=== PATIENT | female | born 1985 | race Caucasian/White ===

== ENCOUNTER → 2018-07-02 09:16 | Outpatient (CLI) | payer OTHER, MEDICAID, SELFPAY ==
--- NOTE | 2018-07-02 | DI.MRI.S_ITS ---
PROCEDURE: MR ANGIO HEAD WO CON INDICATIONS: PULSITILE TINNITUS TECHNIQUE: Noncontrast axial 3-D [id number] MR angiogram, with 3-dimensional maximum intensity projection (MIP) reformats of the internal carotid arteries and posterior circulation then performed. COMPARISON: None. FINDINGS: Image quality: Excellent. Anterior circulation: Intracranial internal carotid arteries demonstrate normal size and intraluminal flow signal. The flow within the paired anterior cerebral arteries is normal and symmetric. The flow within the middle cerebral arteries is normal and symmetric. The anterior communicating artery is seen. No stenoses, occlusions, or aneurysms. Posterior circulation: Left distal vertebral artery is dominant and patent. Right distal vertebral artery is small in caliber, but patent. The flow within the posterior cerebral arteries is normal and symmetric. No stenoses, occlusions, or aneurysms. IMPRESSION: Negative cerebral MR angiography. No explanation for tinnitus. Dictated by: Romina Bhakta M.D. on 07/02/2018 at 10:38 Approved by: Romina Bhakta M.D. on 07/02/2018 at 10:40
== END ==
PROVIDERS: Visit Provider Otolaryngology
DX: H93.A9 Pulsatile tinnitus, unspecified ear (principal)
CPT/HCPCS: 70544

== ENCOUNTER 2019-07-28 11:39 | Emergency (ER) | payer OTHER, MEDICAID, SELFPAY ==
[2019-07-28 11:53] VITALS: BP 157/77; PULSE 117; RESP 24; TEMP 36.7; O2SAT 99
--- NOTE | 2019-07-28 13:09 | DI.RAD.S_ITS ---
PROCEDURE: XR CHEST 2V INDICATIONS: abd pain worse w/ deep breath TECHNIQUE: 2 views of the chest were acquired. COMPARISON: None. FINDINGS: Surgical changes and devices: None. Lungs and pleura: Lungs are clear. No pleural effusions or pneumothorax. Mediastinum: Mediastinal contours are normal. Heart size is normal. Bones and chest wall: No suspicious bony abnormalities. Soft tissues appear unremarkable. IMPRESSION: No acute cardiopulmonary disease process. Dictated by: Vanessa Clark MD, PhD on 07/28/2019 at 13:45 Approved by: Vanessa Clark MD, PhD on 07/28/2019 at 13:45
--- NOTE | 2019-07-28 13:09 | DI.RAD.S_ITS ---
PROCEDURE: XR ABDOMEN 1V INDICATIONS: abd pain worse w/ deep breath TECHNIQUE: One view of the abdomen acquired. COMPARISON: None. FINDINGS: Surgical changes and devices: None. Bowel: Bowel gas pattern is normal. Soft tissues: No suspicious abdominal calcifications. Visualized solid organ contours appear normal in size. Bones: No suspicious bony lesions. IMPRESSION: Normal examination. Dictated by: Vanessa Clark MD, PhD on 07/28/2019 at 13:44 Approved by: Vanessa Clark MD, PhD on 07/28/2019 at 13:45
[2019-07-28 13:21] VITALS: PULSE 101; RESP 12; O2SAT 99
[2019-07-28 13:35] LABS: Add Manual Diff / Slide Review NO; Basophils Absolute Auto 100 /uL (0-100); Basophils Percent Auto 0.9 % (0-2); Eosinophils Absolute Auto 100 /uL (0-450); Eosinophils Percent Auto 0.9 % (2-4); Hematocrit 41.6 % (36-46); Hemoglobin 14.3 g/dL (12.0-16.0); Lymphocytes Absolute Auto 2800 /uL (1100-4500); Lymphocytes Percent Auto 32.4 % (25-40); Mean Corpuscular HGB Conc 34.3 % (30-36); Mean Corpuscular Volume 90.3 fL (80-100); Monocytes Absolute Auto 700 /uL (0-900); Monocytes Percent Auto 8.5 % (3-14); Neutrophils Absolute Auto 5000 /uL (1500-7000); Neutrophils Percent Auto 57.3 % (50-75); Platelet Count 315 X10^3/uL (150-400); Red Blood Cell Count 4.61 X10^6/uL (4.0-5.2); Red Cell Distribution Width 13.5 % (11.6-14.8); White Blood Cell Count 8.7 X10^3/uL (4.5-11.0)
[2019-07-28 13:51] LABS: Alanine Aminotransferase 23 IU/L (<35); Albumin 4.8 g/dL (3.5-5.0); Albumin Globulin Ratio 1.4 (1.0-2.8); Alkaline Phosphatase 69 U/L (38-126); Aspartate Aminotransferase 24 IU/L (14-36); BUN Creatinine Ratio 25.5 (6-22); Bilirubin Total 0.5 mg/dL (0.2-1.3); Blood Urea Nitrogen 14 mg/dL (7-17); Calcium 9.9 mg/dL (8.4-10.2); Carbon Dioxide 24 mmol/L (22-32); Chloride 103 mmol/L (98-107); Estimated Glomerular Filt Rate > 60.0 mL/min (>60); Globulin 3.4 g/dL (1.7-4.1); Glucose 100 mg/dL (70-100); HEMOLYSIS < 15 (0-50); Potassium 4.5 mmol/L (3.4-5.1); Sodium 136 mmol/L (137-145); Total Protein 8.2 g/dL (6.3-8.2)
[2019-07-28 15:09] VITALS: BP 129/84; PULSE 86; RESP 17; O2SAT 97
--- NOTE | 2019-07-28 15:09 | ED_ITS ---
HPI - Abdominal Pain <WILDA Rhoades - Last Filed: 07/28/19 19:10> General Chief Complaint: Abdominal Pain Stated Complaint: bilateral Kidney pain Time Seen by Provider: 07/28/19 14:35 Source: patient Mode of arrival: Ambulatory Limitations: no limitations History of Present Illness HPI narrative: 33yo female with a history of chronic low back pain, presents emergency department complaining of lower rib upper abdominal pain bilaterally for the past 3-4 days. She states this pain occurred when taking a deep breath or with certain movements. ?Patient states she has been tested for COVID-19 as well as tested for antibodies, without a positive result. Patient denies any trauma to the area history of renal calculi. Patient states ?I am worried about kidneys ?. Patient denies any abdominal pain, nausea, vomiting, chest pain, shortness of breath, dysuria, vaginal bleeding or discharge, or any other concerns. Related Data Home Medications Medication Instructions Recorded Confirmed diphenhydramine HCl [Benadryl 25 mg PO Q6HP PRN #0 02/20/16 07/07/19 Allergy] acetaminophen 500 mg tablet 500 mg PO QID PRN 05/01/19 07/07/19 tizanidine 2 mg tablet 2 mg PO Q6-8H PRN 05/01/19 07/07/19 lisinopril 10 mg tablet mg PO DAILY tab 07/07/19 07/07/19 Previous Rx's Medication Instructions Recorded methylprednisolone 4 mg tablets in See Rx Instructions PO PER PKG DIR 07/07/19 a dose pack #21 each oxaprozin 600 mg tablet 1,200 mg PO DAILY #60 tab 07/07/19 Allergies Allergy/AdvReac Type Severity Reaction Status Date / Time codeine [CODEINE] Allergy Unknown Verified 07/28/19 11:58 naproxen [NAPROXEN] Allergy Unknown Verified 07/28/19 11:58 pregabalin [From LYRICA] Allergy Unknown Verified 07/28/19 11:58 tramadol AdvReac Mild rigors Verified 07/28/19 11:58 Review of Systems <WILDA Rhoades - Last Filed: 07/28/19 19:10> Review of Systems Narrative: REVIEW OF SYSTEMS: GENERAL: Denies fever or chills. HENT: No head trauma. CARDIOVASCULAR: No chest pain or syncope. RESPIRATORY: No shortness of breath or cough. GASTROINTESTINAL: No nausea, vomiting, diarrhea, or constipation. GENITOURINARY: No flank pain or dysuria. MUSCULOSKELETAL: Complains of lower rib/upper abdominal pain bilaterally, see HPI. INTEGUMENTARY: No rash, lesions, or pruritus. NEURO: No numbness, tingling. Patient History <WILDA Rhoades - Last Filed: 07/28/19 19:10> Medical History Facet arthropathy, lumbar (Acute) Lumbosacral radiculopathy at L5 (Acute) Spondylolisthesis of lumbosacral region (Acute) Surgical History History of tonsillectomy (Acute) Family History Father Mesothelioma Mother Cancer Grandmother Cancer Grandfather Cancer Social History Smoking Status: Current every day smoker alcohol intake: never substance use type: does not use Smoking Status: Current every day smoker alcohol intake frequency: 0-2 drinks per day Substance Use Type: does not use Exam <WILDA Rhoades - Last Filed: 07/28/19 19:10> Initial Vital Signs Initial Vital Signs: Vital Signs Temperature 98.1 F 07/28/19 11:53 Pulse Rate 117 H 07/28/19 11:53 Respiratory Rate 24 07/28/19 11:53 Blood Pressure 157/77 H 07/28/19 11:53 Pulse Oximetry 99 07/28/19 11:53 PHYSICAL EXAMINATION: GENERAL: Well groomed, alert, and cooperative. Answers questions promptly and appropriately. Vital signs noted. HENT: Normocephalic, atraumatic. EYES: Symmetrical, sclera white, no periorbital swelling. CARDIOVASCULAR: S1 and S2 sounds normal. Regular rate and rhythm, no murmurs, clicks, or bruits. No pedal edema. RESPIRATORY: Normal respiratory rate, trachea midline, airway patent. No stridor, nasal flaring or accessory muscle use. Lungs are clear in all king. MUSCULOSKELETAL: Mild tenderness with palpation of lower ribs. Normal gait and coordination. Equal tone and mass bilaterally. No spinal tenderness or deformities. : Abdomen nontender, no masses palpated. EXTREMITIES: CMS intact. No pedal edema. SKIN: Warm, dry, soft, appropriate color for ethnicity. No lesions, rashes, or wounds. NEURO: Alert and Oriented X 3. No sensory deficits. PSYCH: Appropriate affect and mood. <Zac Burnette MD - Last Filed: 07/28/19 19:41> Initial Vital Signs Initial Vital Signs: Vital Signs Temperature 98.1 F 07/28/19 11:53 Pulse Rate 117 H 07/28/19 11:53 Respiratory Rate 24 07/28/19 11:53 Blood Pressure 157/77 H 07/28/19 11:53 Pulse Oximetry 99 07/28/19 11:53 Course <WILDA Rhoades - Last Filed: 07/28/19 19:10> Course Course Narrative: Patient was offered Toradol, declined. Orders Ordered: ED Orders 07/28/19 13:09 Chest [XR chest 2V] Stat XR abdomen 1V Stat 07/28/19 13:26 Complete Blood Count AUTO DIFF Stat Comprehensive Metabolic Panel Stat Consultations Consultation #1: Patient staffed with Dr. Burnette discussed test, test results, symptoms, and plan of care. Vital Signs Vital signs: Vital Signs - 8 hr 07/28/19 11:53 07/28/19 13:21 07/28/19 15:09 Temperature 98.1 F Pulse Rate 117 H 101 H 86 Respiratory Rate 24 12 17 Blood Pressure 157/77 H Blood Pressure [Left Arm] 129/84 Pulse Oximetry 99 99 97 <Zac Burnette MD - Last Filed: 07/28/19 19:41> Orders Ordered: ED Orders 07/28/19 13:09 Chest [XR chest 2V] Stat XR abdomen 1V Stat 07/28/19 13:26 Complete Blood Count AUTO DIFF Stat Comprehensive Metabolic Panel Stat Vital Signs Vital signs: Vital Signs - 8 hr 07/28/19 11:53 07/28/19 13:21 07/28/19 15:09 Temperature 98.1 F Pulse Rate 117 H 101 H 86 Respiratory Rate 24 12 17 Blood Pressure 157/77 H Blood Pressure [Left Arm] 129/84 Pulse Oximetry 99 99 97 MDM - Abdominal Pain <WILDA Rhoades - Last Filed: 07/28/19 19:10> Medical Records Attestation: I reviewed the patient's medical records. Lab Data Attestation: I reviewed the patient's lab results. Result diagrams: 07/28/19 13:26 07/28/19 13:26 Labs: Lab Results 07/28/19 07/28/19 Range/Units 13:26 13:26 WBC 8.7 (4.5-11.0) X10^3/uL RBC 4.61 (4.0-5.2) X10^6/uL Hgb 14.3 (12.0-16.0) g/dL Hct 41.6 (36-46) % MCV 90.3 (80-100) fL MCH 31.0 (26-34) PG MCHC 34.3 (30-36) % RDW 13.5 (11.6-14.8) % Plt Count 315 (150-400) X10^3/uL Neut % (Auto) 57.3 (50-75) % Lymph % (Auto) 32.4 (25-40) % [place] % (Auto) 8.5 (3-14) % Eos % (Auto) 0.9 L (2-4) % Baso % (Auto) 0.9 (0-2) % Neut # (Auto) 5000 (9078-3272) /uL Lymph # (Auto) 2800 (0372-3220) /uL [place] # (Auto) 700 (0-900) /uL Eos # (Auto) 100 (0-450) /uL Baso # (Auto) 100 (0-100) /uL Sodium 136 L (137-145) mmol/L Potassium 4.5 (3.4-5.1) mmol/L Chloride 103 (98-107) mmol/L Carbon Dioxide 24 (22-32) mmol/L BUN 14 (7-17) mg/dL Creatinine 0.55 (0.52-1.04) mg/dL Estimated GFR > 60.0 (>60) mL/min BUN/Creatinine Ratio 25.5 H (6-22) Glucose 100 (70-100) mg/dL Calcium 9.9 (8.4-10.2) mg/dL Total Bilirubin 0.5 (0.2-1.3) mg/dL AST 24 (14-36) IU/L ALT 23 (<35) IU/L Alkaline Phosphatase 69 (38-126) U/L Total Protein 8.2 (6.3-8.2) g/dL Albumin 4.8 (3.5-5.0) g/dL Globulin 3.4 (1.7-4.1) g/dL Albumin/Globulin Ratio 1.4 (1.0-2.8) Point of care testing: Point of Care Testing Test Results Negative Urine Dip Bedside Urine Glucose Negative Bedside Urine Bilirubin - Negative Bedside Urine Ketone - Negative Urine Specific Counce 1.015 Bedside Urine Occult Blood - Negative Bedside Urine pH 7.5 Bedside Urine Protein - Negative Bedside Urine Urobilinogen - Negative Bedside Urine Nitrite - Negative Bedside Urine Leukocytes - Negative Esterase Imaging Data Chest x-ray: Radiologist's Impression: [address] [address] XRay Report Signed Patient: Susanne Werner [facility]#: [id number] : 1985Acct:[id number] Age/Sex: 33 / FDate of Service: 07/28/19 Loc: ED Accession Number: [id number] Procedure: XR chest 2V Ordering Provider: Zac Burnette MD PROCEDURE: XR CHEST 2V INDICATIONS: abd pain worse w/ deep breath TECHNIQUE: 2 views of the chest were acquired. COMPARISON: None. FINDINGS: Surgical changes and devices: None. Lungs and pleura: Lungs are clear. No pleural effusions or pneumothorax. Mediastinum: Mediastinal contours are normal. Heart size is normal. Bones and chest wall: No suspicious bony abnormalities. Soft tissues appear unremarkable. IMPRESSION: No acute cardiopulmonary disease process. Dictated by: Vanessa Clark MD, PhD on 07/28/2019 at 13:45 Approved by: Vanessa Clark MD, PhD on 07/28/2019 at 13:45 Abdominal x-ray: Radiologist's Impression: [address] [address] XRay Report Signed Patient: Susanne Werner [facility]#: [id number] : 1985Acct:[id number] Age/Sex: 33 / FDate of Service: 07/28/19 Loc: ED Accession Number: [id number] Procedure: XR abdomen 1V Ordering Provider: Zac Burnette MD PROCEDURE: XR ABDOMEN 1V INDICATIONS: abd pain worse w/ deep breath TECHNIQUE: One view of the abdomen acquired. COMPARISON: None. FINDINGS: Surgical changes and devices: None. Bowel: Bowel gas pattern is normal. Soft tissues: No suspicious abdominal calcifications. Visualized solid organ contours appear normal in size. Bones: No suspicious bony lesions. IMPRESSION: Normal examination. Dictated by: Vanessa Clark MD, PhD on 07/28/2019 at 13:44 Approved by: Vanessa Clark MD, PhD on 07/28/2019 at 13:45 [facility] Narrative Medical decision making narrative: 33-year-old female presents to the emergency department for bilateral lower rib/upper abdominal pain for the past few days. I suspect patient's pain is most likely musculoskeletal in nature due to worsening pain with a deep breath and movement, description of pain, location of pain bilaterally and specifically at the end of ribs, slight increase in pain with palpation, concerning symptoms. Additionally, pain may stem from patient's chronic back pain. Less likely pulmonary infection due to lack of consolidation on chest x-ray, nor mal white blood cell count, patient is afebrile and non tachycardic. Patient has also been tested for COVID-19 recently which has been negative. Less likely acute abdominal etiology as patient's abdominal exam was rather benign, no elevated white blood cell count, CMP non-remarkable. Patient did m ention that she has diarrhea. I suspect this may be due to IBS due to prolonged duration of diarrhea over the past month. May also consider colitis, most likely severe colitis or Crohn's due to normal white blood cell count, no reports of blood in stool. H&H stable Patient unable to give a stool sample in the emergency department. Less likely renal illness such as renal calculi or pyelonephritis, urine is clear without blood or bacteria. Renal labs are within normal limits. No calcium deposits seen on x-ray. To follow up with primary care provider for further evaluation of diarrhea she w as not able to provide a stool sample for us today. She was encouraged to take NSAIDs to help with musculoskeletal pain. Patient was discharged, hemodynamically stable, inverted front of care. <Zac Burnette MD - Last Filed: 07/28/19 19:41> Lab Data Labs: Lab Results 07/28/19 07/28/19 Range/Units 13:26 13:26 WBC 8.7 (4.5-11.0) X10^3/uL RBC 4.61 (4.0-5.2) X10^6/uL Hgb 14.3 (12.0-16.0) g/dL Hct 41.6 (36-46) % MCV 90.3 (80-100) fL MCH 31.0 (26-34) PG MCHC 34.3 (30-36) % RDW 13.5 (11.6-14.8) % Plt Count 315 (150-400) X10^3/uL Neut % (Auto) 57.3 (50-75) % Lymph % (Auto) 32.4 (25-40) % [place] % (Auto) 8.5 (3-14) % Eos % (Auto) 0.9 L (2-4) % Baso % (Auto) 0.9 (0-2) % Neut # (Auto) 5000 (0871-3142) /uL Lymph # (Auto) 2800 (6297-0922) /uL [place] # (Auto) 700 (0-900) /uL Eos # (Auto) 100 (0-450) /uL Baso # (Auto) 100 (0-100) /uL Sodium 136 L (137-145) mmol/L Potassium 4.5 (3.4-5.1) mmol/L Chloride 103 (98-107) mmol/L Carbon Dioxide 24 (22-32) mmol/L BUN 14 (7-17) mg/dL Creatinine 0.55 (0.52-1.04) mg/dL Estimated GFR > 60.0 (>60) mL/min BUN/Creatinine Ratio 25.5 H (6-22) Glucose 100 (70-100) mg/dL Calcium 9.9 (8.4-10.2) mg/dL Total Bilirubin 0.5 (0.2-1.3) mg/dL AST 24 (14-36) IU/L ALT 23 (<35) IU/L Alkaline Phosphatase 69 (38-126) U/L Total Protein 8.2 (6.3-8.2) g/dL Albumin 4.8 (3.5-5.0) g/dL Globulin 3.4 (1.7-4.1) g/dL Albumin/Globulin Ratio 1.4 (1.0-2.8) Point of care testing: Point of Care Testing Test Results Negative Urine Dip Bedside Urine Glucose Negative Bedside Urine Bilirubin - Negative Bedside Urine Ketone - Negative Urine Specific Counce 1.015 Bedside Urine Occult Blood - Negative Bedside Urine pH 7.5 Bedside Urine Protein - Negative Bedside Urine Urobilinogen - Negative Bedside Urine Nitrite - Negative Bedside Urine Leukocytes - Negative Esterase Discharge Plan Departure Patient Disposition: Home Clinical Impression: Acute costochondritis Diarrhea Qualifiers: Diarrhea type: unspecified type Qualified Code(s): R19.7 - Diarrhea, unspecified Discharge Date/Time: 07/28/19 15:27 Instructions: Diarrhea, DI for Costochondritis Activity Restrictions/Additional Instructions: Thank you for entrusting me with your care today. As discussed, your x-rays, laboratory work, and urine sample are non-remarkable. Your kidneys are functioning well, there was no signs of infection in your urine. I am unsure the exact cause of the pain you are feeling, it may be contributed to irritation of the cartilage in between your ribs. I suggest taking ibuprofen 400mg every 6 hours for the next 3 days to decrease inflammation and irritation. In relation to the diarrhea, I suggest following up with your primary care provider in the next week for further discussion of a possible stool sample if indicated. Diarrhea can be caused by inflammation of your bowels, stress, and at times an infection. Your laboratory work to not indicate an infection today, however, stool testing may still be advised. Return emergency department for any new or worsening symptoms such as pain with urination, blood in your urine, uncontrollable vomiting, severe pain, syncope, high fevers, or any other concerns. Prescriptions: No Action diphenhydramine HCl [Benadryl Allergy] 25 MG tablet 25 mg PO Q6HP PRNQty: 0 RF: 0 tizanidine 2 mg tablet 2 mg PO Q6-8H PRNRF: 0 acetaminophen [Tylenol Extra Strength] 500 mg tablet 500 mg PO QID PRNRF: 0 lisinopril 10 mg tablet PO DAILY RF: 0 methylprednisolone [Medrol (Te)] 4 mg tablets,dose pack See Rx Instructions PO PER PKG DIR Qty: 21 RF: 0 oxaprozin [Daypro] 600 mg tablet 1,200 mg PO DAILY Qty: 60 RF: 2 Referrals: Lizeth Pina ND [Primary Care Provider] -
== END 2019-07-28 15:27 | disposition home or self-care (01) ==
PROVIDERS: Emergency Medicine; Emergency Provider Nurse Practitioner; PCP Naturopath
DX: M94.0 Chondrocostal junction syndrome [Tietze] (principal); R19.7 Diarrhea, unspecified
CPT/HCPCS: 36415; 71046; 74018; 80053; 81003; 81025; 85025; 99284

== ENCOUNTER → 2019-09-06 12:49 | Outpatient (ROUT) | payer OTHER, MEDICAID, SELFPAY ==
[2019-09-07 01:19] LABS: COVID19 Sendout Not Detected (Not Detect)
== END ==
PROVIDERS: PCP Naturopath; Visit Provider Physician Assistant
DX: Z01.812 Encounter for preprocedural laboratory examination (principal)
CPT/HCPCS: 87635

== ENCOUNTER 2019-09-09 12:45 | Outpatient (CLI) | payer OTHER, MEDICAID, SELFPAY ==
[2019-09-09] VITALS (9 sets, daily range): BP systolic 122–142; BP diastolic 61–96; PULSE 87–112; RESP 16–22; TEMP 36.9; O2SAT 94–100
--- NOTE | 2019-09-09 12:54 | DI.RAD.S_ITS ---
PROCEDURE: PAIN L/S FACET INJ/BLK 1ST [place] COMPARISON: None. INDICATIONS: SPONDYLOSIS FINDINGS: Fluoroscopic spot filming was performed to verify placement of spinal needles at the L4-L5, L5-S1 level(s), as labeled on the films. Appropriate location(s) of the needle tip(s) was confirmed by injection of iodinated contrast. Dictated by: Chino Duke M.D. on 09/09/2019 at 15:03 Approved by: Chino Duke M.D. on 09/09/2019 at 15:03
[2019-09-09] MEDS: MIDAZOLAM 5 MG/5 ML VIAL IV (13:20)
[2019-09-09] MEDS: fentaNYL 100 MCG/2 ML INJ 50 MCG IV (13:20)
[2019-09-09] MEDS: IOPAMIDOL 15 ML VIAL 3 ML INJ (13:31)
[2019-09-09] MEDS: BUPIVACAINE 0.5% (PF) VIAL 5 ML INJ (13:31)
[2019-09-09] MEDS: LIDOCAINE 1% 20 ML 10 ML INJ (13:31)
[2019-09-09] MEDS: BETAMETHASONE 30 MG/5 ML MDV 12 MG INJ (13:31)
--- NOTE | 2019-09-09 14:09 | PC.NURSE ---
pt returned to pre proc room via wc, minimal assistance for transfer from wc to chair, monitoring resumed by JESUS Benitez
--- NOTE | 2019-09-09 14:28 | PC.NURSE ---
Fentanyl and Versed given by procedural nurse. All other meds administered by Dr Jameson. Pt transferred post procedure to post procedure room- report given to JESUS Carrasquillo.
--- NOTE | 2019-09-10 17:22 | P.PCN_ITS ---
Procedures Date/Time Date of procedure: 09/09/19 Time of procedure: 13:22 General Procedure description: PREOP DIAGNOSIS 1. FACET ARTHROPATHY 2. AXIAL LBP 3. MULTILEVEL DDD POST OP DIAGNOSIS 1. FACET ARTHROPATHY 2. AXIAL LBP 3. MULTILEVEL DDD PROCEDURES 1. FLUORSCOPICALLY GUIDED CONTRAST CONTROLLED FACET JOINT INJECTIONS BILATERAL L4/5, L5/S1 PHYSICIAN: Marty Jameson, DO INDICATIONS Susanne is referred by Dr. Pina for treatment of Axial LBP FINDINGS Multilevel Facet Arthropathy with Clinically significant axial LBP DESCRIPTION OF PROCEDURE Fluoroscopically guided, contrast-controlled bilateral L4/5, L5/S1 facet joint injections. Following review of allergy and review of potential side effects and complications, including, but not necessarily limited to, infection, allergic reaction, local tissue breakdown, stroke, temporary or permanent nerve injury, paralysis, and possible , the patient indicated that the patient understood and agreed to proceed. An informed consent document was signed by the patient, witnessed by a nurse, and placed in the patient's chart. Additionally, other treatment options including medications, modalities, and physical therapy were reviewed with the patient. After review of previous anaesthesic history and IV conscious sedation the patient was deemed safe to proceed with todays procedure with IV conscious sedation as ASA class II designation. Safety time-out was performed to confirm patient ID, procedure to be performed and site of procedure. IV sedation was accomplished with a combination of 4mg of Versed and 50mcg of Fentanyl was administered by the RN after DO order, titrated to patient comfort during the course of the procedure while the patient remained responsive to all verbal commands In the prone position, following sterile prep and drape of the lumbar region, the posterior aspect of the L4/5, L5/S1 facet joints were identified fluoroscopically. The skin was anesthetized via a 25-gauge 1.5-inch needle with 1% lidocaine solution into the corresponding facet joints. At this point, a 22- gauge 3.5-inch spinal needle was atraumatically introduced and advanced under fluoroscopic guidance into the corresponding facet joints. Following negative aspiration, injections of approximately 0.2cc of Isovue 200 confirmed interarticular placement without vascular uptake. The identical procedure was then performed at the L4/5, L5/S1 facet joints on the left. Radiological data, including multiple fluoroscopic views of the lumbosacral spine, reveal a spinal needle at the L4/5, L5/S1 facet joints bilaterally. Subsequent views show flow of contrast material both superiorly and inferiorly within the joint space without vascular or intrathecal uptake. At this point, a total of 0.5cc including a mixture of 0.25cc Marcaine and 0.25cc betamethasone was injected without complication into each of the corresponding facet joints. The patient tolerated the procedure well without signs or symptoms of complications prior to transfer to the recovery area continued monitoring without incident. The patient was then transferred to the recovery area where they were observed for an appropriate period of time after the injection. The patient reported a VAS score of 7 prior to the procedure and a post- procedure VAS of 0. Total Fluoroscopy Time: 11 seconds Total Conscious Sedation Time: 24min POST OP INSTRUCTIONS The patient was provided a Pain Log to continue to record their response to the target-specific procedure prior to follow-up visit with their referring physician. Additionally, specific post-injection care instructions and a contact number to our office were provided if concerns arise regarding possible complications associated with the procedure are suspected. Marty Jameson DO Complications: none
== END 2019-09-09 14:03 | disposition home or self-care (01) ==
LOC: RAD 12:46
PROVIDERS: PCP Naturopath; Referring Provider Physical Medicine & Rehabilitation; Visit Provider Physical Medicine & Rehabilitation
DX: M47.816 Spondylosis without myelopathy or radiculopathy, lumbar region (principal); M47.817 Spondylosis without myelopathy or radiculopathy, lumbosacral region; M54.5 Low back pain; M51.36 Other intervertebral disc degeneration, lumbar region; M51.37 Other intervertebral disc degeneration, lumbosacral region
CPT/HCPCS: 64493; 64494; 99152; J0702; J2250; J3010